=== PATIENT | male | born 1955 | race Two or more races ===

== ENCOUNTER → 2020-12-31 | Outpatient (CLI) | payer MEDICARE | END | disposition home or self-care (01) | LOC: CFH 09:15 | PROVIDERS: ATTEND Nurse Practitioner Family | DX: J92.9 Pleural plaque without asbestos (principal); J84.10 Pulmonary fibrosis, unspecified | CPT/HCPCS: 71250 ==

== ENCOUNTER 2021-01-24 08:00 | Day surgery (SDC) | payer MEDICARE ==
[~2021-01-24] VITALS: Ht 162.6 cm; Wt 68.2 kg
[2021-01-24 08:46] VITALS: BP 124/77
[2021-01-24] MEDS ORDERED: ATOR20TA37 PO (08:55)
[2021-01-24] MEDS ORDERED: GLIP10TA13 PO (08:55)
[2021-01-24] MEDS ORDERED: UMEC1DIS INH (08:55)
[2021-01-24] MEDS ORDERED: LOSA25TA25 PO (08:55)
[2021-01-24] MEDS ORDERED: METF10007 PO (08:55)
[2021-01-24] MEDS ORDERED: FENTANYL PF 100 MCG/2ML ONE (09:10)
[2021-01-24] MEDS ORDERED: LIDOCAINE-MPF 2%, 2ML ONE (09:10)
[2021-01-24] MEDS ORDERED: MIDAZOLAM 1 MG/ML, 2ML ONE (09:10)
[2021-01-24 09:11] LABS: BASOPHILS % (AUTO) 1 % (0-1); EOSINOPHILS % (AUTO) 5 % (1-7); LYMPHOCYTES % (AUTO) 12 % (22-44); MEAN CORPUSCULAR HGB CONC 35.2 g/dL (33.2-36.2); MEAN PLATELET VOLUME 8.4 fL (7.4-10.4); MONOCYTES % (AUTO) 11 % (2-9); NEUTROPHILS % (AUTO) 72 % (42-75); PLATELET COUNT 166 x10^3/uL (130-400); RED BLOOD COUNT 4.16 x10^6/uL (4.38-5.82); RED CELL DISTRIBUTION WIDTH 13.2 % (9.4-14.8)
[2021-01-24 09:20] LABS: ANION GAP 9 mmol/L (5-15); CALCIUM 9.4 mg/dL (8.5-10.1); CHLORIDE 106 mmol/L (98-107); CREATININE 1.12 mg/dL (0.7-1.3)
== END 2021-01-24 10:34 | disposition home or self-care (01) ==
LOC: CACL 08:00
PROVIDERS: ATTEND Internal Medicine Cardiovascular Disease
DX: Z01.810 Encounter for preprocedural cardiovascular examination (principal); J84.10 Pulmonary fibrosis, unspecified; I27.20 Pulmonary hypertension, unspecified; I10 Essential (primary) hypertension; E11.9 Type 2 diabetes mellitus without complications; Z79.899 Other long term (current) drug therapy
CPT/HCPCS: 36415; 80048; 85025; 93451; C1894; J2250; J3010